=== PATIENT | female | born 1990 | race Asian ===

== ENCOUNTER 2019-03-15 06:37 | Emergency (ER) | payer MEDICAID ==
[~2019-03-15] VITALS: Ht 157.5 cm; Wt 52.6 kg
[2019-03-15 06:47] VITALS: BP 93/66; Ht 157.5 cm; Wt 52.6 kg
== END 2019-03-15 07:57 | disposition home or self-care (01) ==
LOC: ED 06:37
DX: S09.8XXA Other specified injuries of head, initial encounter (principal); W22.8XXA Striking against or struck by other objects, initial encounter; Y93.89 Activity, other specified; Y92.89 Other specified places as the place of occurrence of the external cause; Y99.8 Other external cause status